=== PATIENT | female | born 1970 | race African-American/Black ===

== ENCOUNTER 2018-06-17 08:07 | Inpatient (IN) | payer OTHER ==
[~2018-06-17] VITALS: Ht 158.8 cm; Wt 63.5 kg
[2018-06-17] VITALS (8 sets, daily range): BP systolic 101–142; BP diastolic 66–86
[~2018-06-17 08:07] MED LIST: ceFAZolin sod 2 GM in D5W 110 ML IVPB ONE
[2018-06-17] MEDS ORDERED: Vancomycin 1gm inj IVPB ONE (08:51)
[2018-06-17] MEDS ORDERED: Bacitracin 50000 Units Vial ONE (08:52)
[2018-06-17] MEDS ORDERED: Thrombin 5000 units TOPIC ONE ×2 (08:52→11:19)
[2018-06-17] MEDS ORDERED: Bupivacaine w/Epi 0.5% 30ml Vial INJ ONE (08:52)
[2018-06-17] MEDS ORDERED: OXYBUTYNIN CHLOR5 M1 ORAL (09:12)
[2018-06-17] MEDS ORDERED: LISINOPRIL-HCT1 EACH ORAL (09:12)
[2018-06-17] MEDS ORDERED: Midazolam 2mg/2ml Inj ONE (09:28)
[2018-06-17] MEDS ORDERED: fentaNYL 100 mcg/2 mL IV ONE (09:28)
[2018-06-17] MEDS ORDERED: Lidocaine 1% MPF 10mg/ml 5ml ONE (09:29)
[2018-06-17] MEDS ORDERED: Succinylcholine 20mg/ml 10ml vial ONE (09:44)
[2018-06-17] MEDS ORDERED: Zemuron 50mg/5ml Inj IV ONE (09:44)
[2018-06-17] MEDS ORDERED: Neostigmine 1mg/ml 10ml Inj ONE (10:00)
[2018-06-17] MEDS ORDERED: NS Irrig 1000ml ONE (10:00)
[2018-06-17] MEDS ORDERED: LR 1000ml ONE (10:00)
[2018-06-17] MEDS ORDERED: Propofol 1,000mg/ 100ml btl IV ONE (10:00)
[2018-06-17] MEDS ORDERED: Sterile Water Irrig 1000ml IRRIG ONE (10:00)
[2018-06-17] MEDS ORDERED: D5 1/2NS 1,000 ML IV SCH ×2 (10:12→14:15)
--- NOTE | 2018-06-17 10:12 | Pre-Procedure Note/Attestation ---
Pre-Procedure Note/Attestation Complete Prior to Procedure Procedure Narrative: Left L5S1 microdecompression and microdiscectomy, medial facetectomy, laminotomies and foraminotomy Indications for Procedure Pre-Operative Diagnosis: lumbar radiculopathy Attestation I attest that I discussed the nature of the procedure; its benefits; risks and complications; and alternatives (and the risks and benefits of such alternatives ), prior to the procedure, with the patient (or the patient's legal small business representative). I attest that, if there was a reasonable possibility of needing a blood transfusion, the patient (or the patient's legal small business representative) was given the [place] [employer] [facility] [employer] [facility] standardized written summary, pursuant to the David Gorham Blood Safety Act ([place] Health and Safety Code # 1645, as amended). I attest that I re-evaluated the patient just prior to the surgery and that there has been no change in the patient's H&P, except as documented below: Danilo Babb MD Jun 17, 2018 10:12
[2018-06-17] MEDS ORDERED: HYDROcodone/Acetamin 7.5/325 tab ORAL PRN ×6 (10:15→15:15)
[2018-06-17] MEDS ORDERED: Naloxone 0.4mg/ml Inj IVP PRN ×3 (10:15→15:15)
[2018-06-17] MEDS ORDERED: Norco 5mg/325mg tab ORAL PRN ×3 (10:15→15:15)
[2018-06-17] MEDS ORDERED: HYDROmorphone 1mg/ml Carpuject IVP PRN ×2 (10:15→16:15)
[2018-06-17] MEDS ORDERED: HYDROmorphone 1mg/ml Carpuject SUBQ PRN ×3 (10:15→18:15)
[2018-06-17] MEDS ORDERED: Morphine Sulfate 10mg/ml Inj ONE (11:04)
[2018-06-17] MEDS ORDERED: Sodium Chloride 10ml vial INJ ONE (11:05)
[2018-06-17] MEDS ORDERED: Glycopyrrolate 0.2mg/ml 1ml Vial ONE (11:05)
[2018-06-17] MEDS ORDERED: Ketorolac 30mg Inj ONE (11:05)
[2018-06-17] MEDS ORDERED: NS Irrig 1000ml IRRIG ONE (11:20)
--- NOTE | 2018-06-17 11:20 | Anethesia Preoperative Eval ---
Anesthesia Pre-op PMH/ROS General Date of Evaluation: Jun 17, 2018 Time of Evaluation: 09:56 Anesthesiologist: Jairo ASA Score: ASA 2 Mallampati Score Class I : Soft palate, uvula, fauces, pillars visible Class II: Soft palate, uvula, fauces visible Class III: Soft palate, base of uvula visible Class IV: Only hard plate visible Mallampati Classification: Class II Surgeon: Skinny Diagnosis: Lumbar radiculopathuy Surgical Procedure: L5-S1 laminotomy with decompression Anesthesia History: none Family History: no anesthesia problems Allergies: Coded Allergies: TETANUS VACCINES AND TOXOID (Verified Allergy, Severe, 06/17/18) INJECTION SITE GOT HARD AND SWOLLEN AND FELT NUMBNESS ON INJECTIO N SITE SULFA (SULFONAMIDE ANTIBIOTICS) (Verified Allergy, Intermediate, 06/17/18) CHILLS.SKIN RASH Uncoded Allergies: BAND AID (Adverse Reaction, Unknown, 06/17/18) SENSITIVE -LEAVES LEXI ON BAND AID SITE Patient NPO?: Yes NPO Date: Jun 16, 2018 NPO Time: 2129 Past Medical History Cardiovascular: Reports: HTN - stable; Denies: CAD, [place], valve dz, arrhythmia, other Pulmonary: Denies: asthma, COPD, DARVIN, other Gastrointestinal/Genitourinary: Reports: GERD - mild; Denies: CRI, ESRD, other Neurologic/Psychiatric: Reports: depression/anxiety, other - chronic pain; Denies: dementia, CVA, TIA Endocrine: Denies: DM, hypothyroidism, steroids, other HEENT: Denies: cataract (L), cataract (R), glaucoma, [place] TRIBE (L), [place] TRIBE (R), other Hematology/Immune: Denies: anemia, DVT, bleeding disorder, other Musculoskeletal/Integumentary: Denies: OA, RA, DJD, DDD, edema, other PMH Narrative: as above PSxH Narrative: none Anesthesia Pre-op Phys. Exam Physician Exam Last Vital Signs Date Time Temp Pulse Resp B/P (MAP) Pulse Ox O2 Delivery O2 Flow Rate FiO2 06/17/18 09:20 97.7 65 20 142/86 (104) 100 06/17/18 08:51 Room Air Constitutional: NAD Neurologic: CN 2-12 intact Cardiovascular: RRR, no M/R/G Respiratory: CTA Gastrointestinal: S/NT/ND Airway Exam Mallampati Score: Class II MO: full ROM: full Teeth: intact Dentures: no upper, no lower Anesthesia Pre-op A/P Labs see chart Urine Test Test 06/17/18 08:25 Urine HCG, Qualitative Negative (NEGATIVE) Studies Pre-op Studies: EKG, CXR - WNL Risk Assessment & Plan Assessment: ASA 2 Plan: GA with ETT prone position Status Change Before Surgery: No Pre-Antibiotics Drug: Ancef 1gr Given Within 1 Hr of Incision: Yes Time Given: 10:42 Dex Gill MD Jun 17, 2018 11:20
[2018-06-17] MEDS ORDERED: LR 1000ml 1,000 ML IVLG SCH (11:21)
[2018-06-17] MEDS ORDERED: Midazolam 2mg/2ml Inj IVP PRN (11:30)
[2018-06-17] MEDS ORDERED: Meperidine 50mg/ml Inj(FOR RIGORS ONLY) IV PRN (11:30)
[2018-06-17] MEDS ORDERED: fentaNYL 100 mcg/2 mL IV PRN (11:30)
[2018-06-17] MEDS ORDERED: DiphenhydrAMINE 50mg/ml Inj IVP PRN (11:30)
[2018-06-17] MEDS ORDERED: Ketorolac 30mg Inj IV PRN (11:30)
[2018-06-17] MEDS ORDERED: Metoclopramide 10mg/2ml Inj IVP PRN (11:30)
[2018-06-17] MEDS ORDERED: Acetaminophen (Non formulary) 100 ML IV ONE (11:30)
--- NOTE | 2018-06-17 11:59 | Diagnostic Imaging Report ---
Indication: Back pain Technique: 2 intraoperative fluoroscopic images submitted for archival the PACS Operating physician: Skinny Total fluoroscopy time: 3.8 seconds Total fluoroscopy dose: 1.08 mGy. Findings: Intraprocedural fluoroscopic imaging submitted for archival the PACS. Initial image demonstrates 2 surgical instruments projecting posteriorly about the level of the L4-L5 and L5-S1 disc spaces. Second intraoperative image demonstrates surgical instrumentation projecting posteriorly at the level of S1. Impression: Intraprocedural fluoroscopic imaging from spinal surgery. Please see operative report.
--- NOTE | 2018-06-17 12:23 | Brief Operative Note ---
Immediate Post Operative Note Operative Note Pre-op Diagnosis: lumbar radiculopathy Procedure: L5S1 microdecompression and microdiscectomy Post-op Diagnosis: Same Post-op Diagnosis: same as pre-op Findings: consistent w/pre-op dx studies Surgeon: Skinny Hydrologic Engineer: None Anesthesiologist: Jairo Anesthesia: general Specimen: yes Complications: none Condition: stable Fluids: 1l Estimated Blood Loss: minimal - 5cc Drains: none Implant(s) used?: No Danilo Babb MD Jun 17, 2018 12:23
--- NOTE | 2018-06-17 12:39 | Immediate Post-Op Evaluation ---
Immediate Post-Op Evalulation Immediate Post-Op Evalulation Procedure: L5-S1 laminotomy with decompression Date of Evaluation: Jun 17, 2018 Time of Evaluation: 12:37 IV Fluids: 1200 Blood Products: none Estimated Blood Loss: min Urinary Output: none Blood Pressure Systolic: 106 Blood Pressure Diastolic: 67 Pulse Rate: 78 Respiratory Rate: 20 O2 Sat by Pulse Oximetry: 99 Temperature (Fahrenheit): 97.4 Pain Score (1-10): 1 Nausea: No Vomiting: No Complications none Patient Status: reacts, patent, extubated, none Hydration Status: adequate Dex iGll MD Jun 17, 2018 12:39
--- NOTE | 2018-06-17 13:12 | 48 Hour Post Anesthesia Eval ---
Post Anesthesia Evaluation Procedure: L5-S1 laminotomy with decompression Date of Evaluation: Jun 17, 2018 Time of Evaluation: 13:10 Blood Pressure Systolic: 112 0: 72 Pulse Rate: 62 Respiratory Rate: 20 Temperature (Fahrenheit): 97.6 O2 Sat by Pulse Oximetry: 98 Airway: patent Nausea: No Vomiting: No Pain Intensity: 2 Hydration Status: adequate Cardiopulmonary Status: stable Mental Status/LOC: patient returned to baseline Follow-up Care/Observations: n/a Post-Anesthesia Complications: none Follow-up care needed: N/A Dex Gill MD Jun 17, 2018 13:12
[2018-06-17] MEDS ORDERED: ceFAZolin sod 1 GM in D5W 55 ML IV SCH ×5 (14:00→14:15)
[2018-06-17] MEDS ORDERED: Docusate 100mg cap ORAL SCH ×2 (18:00)
[2018-06-17] MEDS: Docusate 100mg cap ORAL SCH (18:00)
[2018-06-17] MEDS: D5 1/2NS 1,000 ML IV SCH (19:54)
--- NOTE | 2018-06-17 21:00 | Operative Note - Dictated ---
DATE OF OPERATION: 06/17/2018 PREOPERATIVE DIAGNOSIS: L5-S1 disk herniation with left S1 nerve root impingement and left lower extremity radiculopathy. POSTOPERATIVE DIAGNOSIS: L5-S1 disk herniation with left S1 nerve root impingement and left lower extremity radiculopathy. PROCEDURE PERFORMED: 1. Left L5-S1 medial facetectomy, laminotomy, foraminotomy, and microdiskectomy. 2. Intraoperative use of microscope. 3. Intraoperative use of fluoroscopy. SURGEON: Danilo Babb M.D. PINSETTER MECHANIC HELPER: None. ANESTHESIOLOGIST: Dex Gill M.D. ANESTHESIA: General endotracheal anesthesia. INTRAOPERATIVE FINDINGS: Disk herniation at L5-S1 with impingement of the left S1 nerve root with left-sided foraminal stenosis at L5-S1. EBL: 5 mL. FLUIDS: One liter of crystalloid. INDICATIONS: This is a pleasant female with failed nonoperative treatment and option for above treatment was given. Risks, alternatives, and benefits were discussed with the patient at length. Risks include, but are not limited to, anesthesia complications including , medical complications including liver and kidney dysfunction, myocardial infarction, cold, , bleeding, infection, dural tear, CSF leak, nerve root injury, pars fracture, instability, reherniation, and continued symptoms. DESCRIPTION OF OPERATION: The patient was brought to the operating room supine on a stretcher. Subsequently, appropriate IV lines were placed and 2 g of Ancef was administered. Anesthesia was induced. The patient was successfully intubated. Sequential compression devices were placed bilaterally. The patient was gently turned over onto the Art frame table. All bony prominences well padded and his abdomen was assured to lay freely. The L5-S1 interspace was positively located via fluoroscopy and an indelible marker was used to beltran the midline at the level of the L5-S1 interspace. The patient was prepped and draped in the usual sterile fashion with alcohol, chlorhexidine scrub, ChloraPrep, and [place] draping. The intraoperatively sterilely draped microscope was brought into the field and was used from skin incision to skin closure. At this point, a scalpel was used to incise the skin at the midline and a monopolar cautery was used to dissect to the level of the dorsal lumbar fascia. At this point, the monopolar cautery was used to the left of the midline for a subperiosteal dissection of the lamina of left L5 and left S1. belt back operator retractors were set into place and at this point, attention was diverted to placing a radiopaque marker at the caudal pedicle level. Lateral fluoroscopy was obtained and the radiopaque marker was at the level of the S1 pedicle and thus the left L5-S1 interlaminar space was positively identified. At this point, with the use of a high-speed drill, straight and curved curette #2 through #5 Kerrison punches, an inter lumbar laminotomy, medial facetectomy was accomplished. The ligamentum flavum was carefully peeled off of the common dural sac and a foraminotomy for the exiting left L5 nerve root was accomplished with #2 Kerrison punches as well as a curved curette. Once this was accomplished, the [place] 4 retractor was used to gently retract the neural elements and exposed the herniated disc, which was impinging on the common dural sac as well as the traversing left S1 nerve root. The nerve root retractor was used to retract the neural elements and at this point, photographs were taken and a #11 scalpel was used to make a box incision in the posterior annulus and and with the use of Spike curette, pituitary rongeurs, a [place] probe, dental probe, nerve hook, and Peapod, a microdiskectomy was accomplished until the floor of the canal was flat and there was no further impingement on the neural elements. Disk space irrigation was copiously done and loose fragments of disk was removed until there was no further loose fragments. Further investigation of the disk space was done and there was no loose fragments. Investigation of the neural foramina was done with a Emmanuel ball and the foraminal and extraforaminal areas were found to be pinned and the left L5 nerve was found to be completely decompressed as well as the left S1 nerve root. The lateral recess central canal and foraminal regions were completely decompressed. Valsalva at 40 mmHg was done. There was no CSF leak. At this point, attention was diverted to closure. One g of vancomycin powder was placed subfascially and suprafascially and hemostasis was achieved and there was no bleeding and therefore the decision was made not to use a drain. The dorsal lumbar fascia was closed with #1 Vicryl sutures in a watertight interrupted fashion. The subcuticular and subdermal layers were closed with 2-0 Vicryl sutures. All sponge, needle, and instrument counts were correct. There were no complications during the case. The skin was closed with Dermabond. Sterile dressing and tape was placed. The wound was copiously irrigated multiple times during the case. At this point, the patient was turned supine, was extubated in stable condition, was taken to the recovery room in stable condition, was found to be neurovascularly intact, and was admitted for monitoring in the hospital. Danilo Babb M.D. DR: MARTIN JOB#: [id number] CC:
[2018-06-17] MEDS: ceFAZolin sod 1 GM in D5W 55 ML IV SCH (21:03)
[2018-06-17] MEDS: HYDROmorphone 1mg/ml Carpuject IVP PRN (21:12)
[2018-06-18] VITALS: BP 138/79
[2018-06-18] MEDS: D5 1/2NS 1,000 ML IV SCH ×2 (01:03→04:51)
[2018-06-18] MEDS: HYDROmorphone 1mg/ml Carpuject IVP PRN ×2 (02:48→11:03)
[2018-06-18 04:00] VITALS: BP 120/69
[2018-06-18] MEDS: ceFAZolin sod 1 GM in D5W 55 ML IV SCH ×2 (05:19→14:08)
[2018-06-18 08:00] VITALS: BP 144/90
[2018-06-18] MEDS: Docusate 100mg cap ORAL SCH (09:00)
[2018-06-18 12:00] VITALS: BP 138/91
[2018-06-18] MEDS ORDERED: NAPROXEN500 M2 ORAL (13:54)
[2018-06-18 16:00] VITALS: BP 133/86
[2018-06-18] MEDS ORDERED: Tubing IV Secondary IV ONE (16:59)
[2018-06-18] MEDS ORDERED: D5 1/2NS 1000ml IV ONE (16:59)
--- NOTE | 2018-06-20 18:21 | Discharge Summary ---
Discharge Summary Hospital Course Date of Admission Jun 17, 2018 at 08:07 Date of Discharge Jun 18, 2018 at 17:00 Admitting Diagnosis Lumbar radiculopathy Reason for Hospitalization: Elective surgery HPI Jose Carlos Bedoya is a 47 year old female who was admitted on Jun 17, 2018 at 08:07 for lumbar radiculopathy. Patient failed nonoperative management and was admitted for elective surgery Procedures s/p 06/17/[address] Babb 1. Left L5-S1 medial facetectomy, laminotomy, foraminotomy, and microdiskectomy. 2. Intraoperative use of microscope. 3. Intraoperative use of fluoroscopy. Hospital Course status post surgery course of recovery uneventful initially IV fluids s/p perioperative antibiotics neurovascular status closely monitored, stable incision clean, dry, and intact pain management addressed ; pain controlled hemodynamically stable ambulated with PT fall precautions maintained; safe for ambulation tolerated diet , IV fluids discontinued GI prophylaxis provided antiemetics were on board as needed voided freely bowel regimen instituted patient was stable for discharge discharge instructions provided follow up with surgeon as outpatient as advised FINAL DIAGNOSES Lumbar radiculopathy Disk herniation at L5-S1 with impingement of the left S1 nerve root with left- sided foraminal stenosis at L5-S1. s/p L5-S1 microdecompression and microdiscectomy Discharge Medications Continued Medications: Lisinopril/Hydrochlorothiazide 10-12.5 Mg Tab (Lisinopril-Hctz 10-12.5 Mg Tab) 1 Each Tablet 1 TAB ORAL DAILY, TAB (This prescription has been renewed) Naproxen* (Naproxen*) 500 Mg Tablet 500 MG ORAL TWICE A DAY PRN for For Pain, #40 TAB (This prescription has been renewed) Oxybutynin Chloride (Oxybutynin Chloride) 5 Mg Tablet 5 MG ORAL DA, #30 TAB 0 Refills (This prescription has been renewed) Discharge Condition Upon Discharge: stable Discharge Disposition Patient was discharged to Home () Discharge Instructions Discharge Instructions Special Instructions I have been assigned to complete a D/C Summary on this account. I was not involved in the patient management Clarisse Teixeira NP Jun 20, 2018 18:21
== END 2018-06-18 17:00 | disposition home or self-care (01) | DRG 520 ==
LOC: UNDOADMIN 08:07 → 3E 08:07 → SDSOVERFLO 08:07 → UNDODISIN 14:00
PROC: 0SB40ZZ Excision of Lumbosacral Disc, Open Approach (ICD-10-PCS; principal; 2018-06-17 10:00)
PROC: 01NR0ZZ Release Sacral Nerve, Open Approach (ICD-10-PCS; principal; 2018-06-17 10:00)
DX: M51.17 Intervertebral disc disorders with radiculopathy, lumbosacral region (principal); M48.07 Spinal stenosis, lumbosacral region; Z88.2 Allergy status to sulfonamides
CPT/HCPCS: 36415; 72020; 76000; 81025; 86850; 86900; 86901; 87081; 94003; 94150; J2250; J2405; J2710